=== PATIENT | male | born 1975 | race Caucasian/White ===

== ENCOUNTER 2022-04-06 06:15 | Inpatient (IN) | payer OTHER, MEDICAID, SELFPAY ==
--- NOTE | 2022-04-06 | ECG_ITS ---
Test Reason : COCAINE USE Blood Pressure : / mmHG Vent. Rate : 067 BPM Atrial Rate : 067 BPM P-R Int : 148 ms QRS Dur : 094 ms QT Int : 400 ms P-R-T Axes : 059 -68 018 degrees QTc Int : 422 ms Normal sinus rhythm Left axis deviation Abnormal ECG When compared with ECG of 08-FEB-2018 10:27, No significant change was found Referred By: Priyanka Glover Electronically Signed By:LIVE MCCULLOUGH
--- NOTE | ~2022-04-06 | CT_ITS ---
EXAMINATION: CT CHEST WITHOUT CONTRAST CLINICAL INFORMATION: Shortness of breath. COMPARISON: None. TECHNIQUE: Multidetector volumetric CT imaging of the chest was done. Axial MIP volume rendering provided. Sagittal and coronal reformatted images were obtained. This CT examination was performed using dose optimization techniques as appropriate, variously including the following: *Automated exposure control *Adjustment of mA and/or kV according to patient size (this includes techniques or standardized protocols for targeted exams where dose is matched to indication/reason for exam; i.e. extremities or head) *Use of iterative reconstruction technique DLP: 286 mGy-cm FINDINGS: LUNGS: Very mild bronchial wall thickening. Cylindrical cystic lucency in the posterior right lower lobe (5:325) in continuation with a dilated segmental bronchial branch, suggesting bronchiectasis. No focal consolidation or groundglass disease. Central airways are patent. No suspicious pulmonary nodule or mass. MEDIASTINUM: Normal heart size. No pericardial effusion. No mediastinal lymphadenopathy. Evaluation of the hilar structures is limited in the absence of IV contrast. CORONARY ARTERY CALCIFICATION: None visualized on this study, although evaluation is limited by motion. PLEURA: There is no pleural effusion. No pleural mass or thickening. AXILLA: No lymphadenopathy. UPPER ABDOMEN: No significant abnormality. OSSEOUS STRUCTURES: No acute or aggressive appearing osseous findings. CT/CT chest wo IV con IMPRESSION: 1. Very mild bronchial wall thickening suggesting suggesting delayed small airways disease. 2. Cylindrical bronchiectasis in the right lower lobe. 3. No focal consolidation or groundglass disease. 4. No suspicious pulmonary nodule or mass.
[2022-04-06 06:18] VITALS: BP 136/90; PULSE 103; RESP 18; TEMP 36.4; O2SAT 94; BMI 21.1
[2022-04-06 07:06] LABS: COVID-19 Test Negative (Negative); IDNOW Serial# 6674DD1D
--- NOTE | 2022-04-06 07:25 | PC.NURSE ---
pt is sleeping resp even and unlabored.
--- NOTE | 2022-04-06 08:57 | PC.NURSE ---
pt is being seen by md. pt aware of plan of care.
--- NOTE | 2022-04-06 09:01 | ED.PSYCH ---
HPI - Psych General Chief Complaint: Psychiatric Symptoms Stated Complaint: CRISIS,SI,OUTSIDE FOOR HOURS Time Seen by Provider: 04/06/22 08:29 Source: patient Mode of arrival: EMS Limitations: no limitations History of Present Illness HPI Narrative: 46-year-old male with previous psychiatric history presents with feeling stressed out. He has mild suicidal ideation without a plan. He has been hospitalized approximately 2 months ago according to the patient for psychiatric reasons. Has a history of alcohol abuse. Patient denies homicidal ideation. Patient describes symptoms as moderate to severe in nature. There is no clear relieving or exacerbating features. Patient at this time denies any alcohol or drug abuse. Stressors include homelessness. Related Data Home Medications Medication Instructions Recorded Confirmed No Known Home Meds 04/06/22 04/06/22 Allergies Allergy/AdvReac Type Severity Reaction Status Date / Time No Known Allergies Allergy Unverified 10/30/19 18:36 [No Known Allergies*] Review of Systems Review of Systems: CONSTITUTIONAL: Denies weight loss, fever and chills. HEENT: Denies changes in vision and hearing. RESPIRATORY: Denies SOB and cough. CV: Denies palpitations no CP. GI: Denies abdominal pain, nausea, vomiting and diarrhea. : Denies dysuria and urinary frequency. MSK: Denies myalgia and joint pain. SKIN: Denies rash and pruritus. NEUROLOGICAL: Denies headache and syncope. PSYCHIATRIC: Depression, stress, SI All other ROS are negative unless in HPI PMFSH Social History Social History Advance Directives: No Physical Exam Vital Signs: Vital Signs: Last Vital Signs Temp 98.3 F 04/06/22 14:24 Pulse 92 04/06/22 14:24 Resp 17 04/06/22 14:24 BP 122/80 04/06/22 14:24 Pulse Ox 95 04/06/22 14:24 O2 Del Method 04/06/22 14:24 BMI result Body Mass Index 21.1 GEN: Well developed, no acute distress, alert, unkempt HEENT: Normocephalic, atraumatic, normal external ears, nose appears normal, no oropharyngeal edema or exudates Eyes: Normal to appearance Neck: Supple, no lymphadenopathy Respiratory: Talks in complete sentences, no respiratory distress, clear to auscultation bilaterally Cardiovascular: Regular rate and rhythm, no murmurs rubs or gallops Abdomen: Soft, nontender, nondistended, no guarding, no rebound Back: No CVA tenderness Extremities: No clubbing cyanosis or edema Neurologic: No focal neurologic deficits, cranial nerves 2-12 intact, strength is 5/5 bilaterally, gait normal Skin: No rash Course Course Course Narrative: 46-year-old male with previous psychiatric history, homelessness presents for psychiatric evaluation. Patient reports feeling stressed out with some mild suicidal ideation. Denies homicidal ideation. Denies drugs or alcohol. Patient will have routine laboratory analysis to check for any metabolic abnormalities including intoxication. He will have a crisis evaluation. Reevaluation(s) Reevaluation #1: Patient is medically cleared for psychiatric evaluation. The oncoming emergency physician will assume care at this time. Disposition is pending crisis evaluation. Time: 16:12 Medical Decision Making Medical Decision Making [facility] Narrative: 46-year-old male with history of psychiatric illness presents with SI and depressive symptomatology. His examination is nonfocal and otherwise benign. Patient with crisis evaluation with routine laboratory analysis. Differential Diagnosis Differential Diagnoses: The differential diagnosis associated with the presentation includes (Depression, anxiety, psychosis, schizophrenia, schizoaffective disorder, personality disorder, mood disorder, adjustment disorder, drug abuse, alcohol abuse) Admission/Observation Consideration of admission/observation: Escalation of care including admission/observation considered Consult Healthcare Provider Management of the patient was discussed with: Behavioral Health Provider Lab Data [facility] Lab Attestation statement: I reviewed the patient's lab results. 04/06/22 10:15 04/06/22 10:15 Labs: Lab Results 04/06/22 04/06/22 04/06/22 Range/Units 06:33 10:15 10:15 WBC 8.9 (4.8-10.8) X10*3/uL RBC 5.51 (4.60-5.80) X10*6/uL Hgb 17.1 (14.0-18.0) g/dl Hct 48.9 (42.0-52.0) % MCV 88.7 (80.0-98.0) fL MCH 31.0 (27.0-33.0) pg MCHC 35.0 (31.0-36.0) g/dl RDW 14.6 (11.0-16.0) % Plt Count 224 (160-400) X10*3/uL MPV 10.0 (9.4-12.4) fL Immature Gran % (Auto) 0.2 (0.0-0.4) % Neut % (Auto) 64.4 (45-73) % Lymph % (Auto) 27.3 (20-40) % [place] % (Auto) 7.7 (2-11) % Eos % (Auto) 0.3 (0-4) % Baso % (Auto) 0.1 (0-2) % Lymph # (Auto) 2.4 (1.2-4.9) X10*3/uL [place] # (Auto) 0.7 (0.1-1.2) X10*3/uL Eos # (Auto) 0.0 (0.0-0.4) X10*3/uL Baso # (Auto) 0.0 (0.0-0.2) X10*3/uL Abs Immat Gran (auto) 0.02 (0.00-0.03) X10*3/uL Absolute Neuts (auto) 5.7 (2.0-8.3) x10*3/uL Absolute Nucleated RBC 0.000 (0.0-0.012) X10*3/uL Nucleated RBC % (auto) 0.0 (0.0-0.2) /100WBC Sodium 142 (135-145) mmol/L Potassium 4.3 (3.3-5.1) mmol/L Chloride 104 (96-108) mmol/L Carbon Dioxide 27 (22-29) mmol/L Anion Gap 15 (12-20) BUN 9 (9-16) mg/dL Creatinine 0.77 (0.5-1.4) mg/dL Estim Creat Clear Calc 103.8 Estimated GFR > 60 Random Glucose 77 (60-115) mg/dL Calcium 9.3 (8.4-10.2) mg/dL Total Bilirubin 0.9 (0.0-1.0) mg/dL AST 19 (5-37) U/L ALT 21 (0-40) U/L Alkaline Phosphatase 72 (39-117) U/L Total Protein 6.9 (6.5-8.0) g/dL Albumin 4.2 (3.5-5.0) g/dL Urine Color Urine Appearance Urine pH (5.0-9.0) Ur Specific [place] (1.005-1.025) Urine Protein (Neg-Trace) mg/dL Urine Glucose (UA) (Negative) mg/dL Urine Ketones (Negative) mg/dL Urine Blood (Negative) Urine Nitrite (Negative) Ur Leukocyte Esterase (Negative) Urine Opiates Screen (Not Detect) Urine Fentanyl Screen (Not Detect) Ur Barbiturates Screen (Not Detect) Ur Phencyclidine Scrn (Not Detect) Ur Amphetamines Screen (Not Detect) U Benzodiazepines Scrn (Not Detect) Urine Cocaine Screen (Not Detect) U Marijuana (THC) Screen (Not Detect) Ethyl Alcohol 86 mg/dL COVID-19 ([facility]) Negative (Negative) COVID-19 Clin Com See Note 04/06/22 04/06/22 Range/Units 10:42 10:42 WBC (4.8-10.8) X10*3/uL RBC (4.60-5.80) X10*6/uL Hgb (14.0-18.0) g/dl Hct (42.0-52.0) % MCV (80.0-98.0) fL MCH (27.0-33.0) pg MCHC (31.0-36.0) g/dl RDW (11.0-16.0) % Plt Count (160-400) X10*3/uL MPV (9.4-12.4) fL Immature Gran % (Auto) (0.0-0.4) % Neut % (Auto) (45-73) % Lymph % (Auto) (20-40) % [place] % (Auto) (2-11) % Eos % (Auto) (0-4) % Baso % (Auto) (0-2) % Lymph # (Auto) (1.2-4.9) X10*3/uL [place] # (Auto) (0.1-1.2) X10*3/uL Eos # (Auto) (0.0-0.4) X10*3/uL Baso # (Auto) (0.0-0.2) X10*3/uL Abs Immat Gran (auto) (0.00-0.03) X10*3/uL Absolute Neuts (auto) (2.0-8.3) x10*3/uL Absolute Nucleated RBC (0.0-0.012) X10*3/uL Nucleated RBC % (auto) (0.0-0.2) /100WBC Sodium (135-145) mmol/L Potassium (3.3-5.1) mmol/L Chloride (96-108) mmol/L Carbon Dioxide (22-29) mmol/L Anion Gap (12-20) BUN (9-16) mg/dL Creatinine (0.5-1.4) mg/dL Estim Creat Clear Calc Estimated GFR Random Glucose (60-115) mg/dL Calcium (8.4-10.2) mg/dL Total Bilirubin (0.0-1.0) mg/dL AST (5-37) U/L ALT (0-40) U/L Alkaline Phosphatase (39-117) U/L Total Protein (6.5-8.0) g/dL Albumin (3.5-5.0) g/dL Urine Color Yellow Urine Appearance Clear Urine pH 5.5 (5.0-9.0) Ur Specific [place] 1.010 (1.005-1.025) Urine Protein Negative (Neg-Trace) mg/dL Urine Glucose (UA) Negative (Negative) mg/dL Urine Ketones Trace (Negative) mg/dL Urine Blood Negative (Negative) Urine Nitrite Negative (Negative) Ur Leukocyte Esterase Negative (Negative) Urine Opiates Screen Not Detected (Not Detect) Urine Fentanyl Screen Not Detected (Not Detect) Ur Barbiturates Screen Not Detected (Not Detect) Ur Phencyclidine Scrn Not Detected (Not Detect) Ur Amphetamines Screen Not Detected (Not Detect) U Benzodiazepines Scrn Not Detected (Not Detect) Urine Cocaine Screen POSITIVE H (Not Detect) U Marijuana (THC) Screen Not Detected (Not Detect) Ethyl Alcohol mg/dL COVID-19 ([facility]) (Negative) COVID-19 Clin Com External Record Review No records available Prescription Management I considered prescription management with: Other (Anxiolytics) Social Determinants Patient?s care significantly limited by Social Determinants of Health including: Inadequate housing Discharge Plan Discharge Clinical Impression: Depression, Cocaine use Patient Disposition: Still a Patient Prescriptions: No Action No Known Home Meds Interventions: [place]-Suicide Risk Severity Scale Last Done: 04/06/22 06:36
[2022-04-06 09:03] VITALS: BP 109/73; PULSE 79; RESP 16; TEMP 36.8; O2SAT 93
--- NOTE | 2022-04-06 09:05 | PC.NURSE ---
pt is a/o x 3 no sob/marc noted speaks in full sentences. pt denies any si/hi.
[2022-04-06 10:22] LABS: MANUAL DIFF FLAG NO
[2022-04-06 10:23] LABS: Basophils Percent Auto 0.1 % (0-2); Eosinophils Percent Auto 0.3 % (0-4); Hematocrit 48.9 % (42.0-52.0); Hemoglobin 17.1 g/dl (14.0-18.0); Imm Gran Abs Auto 0.02 X10*3/uL (0.00-0.03); Imm Gran Pct Auto 0.2 % (0.0-0.4); Lymphocytes Absolute Auto 2.4 X10*3/uL (1.2-4.9); Lymphocytes Percent Auto 27.3 % (20-40); Mean Corpuscular Volume 88.7 fL (80.0-98.0); Monocytes Absolute Auto 0.7 X10*3/uL (0.1-1.2); Monocytes Percent Auto 7.7 % (2-11); Neutrophils Absolute Auto 5.7 x10*3/uL (2.0-8.3); Neutrophils Percent Auto 64.4 % (45-73); Platelet Count 224 X10*3/uL (160-400); Red Blood Count 5.51 X10*6/uL (4.60-5.80); Red Cell Distribution Width 14.6 % (11.0-16.0); White Blood Count 8.9 X10*3/uL (4.8-10.8)
[2022-04-06 10:41] LABS: Alanine Aminotransferase 21 U/L (0-40); Albumin Level 4.2 g/dL (3.5-5.0); Alkaline Phosphatase 72 U/L (39-117); Anion Gap 15 (12-20); Aspartate Amino Transferase 19 U/L (5-37); Bilirubin Total 0.9 mg/dL (0.0-1.0); Blood Urea Nitrogen 9 mg/dL (9-16); Calcium 9.3 mg/dL (8.4-10.2); Carbon Dioxide 27 mmol/L (22-29); Chloride 104 mmol/L (96-108); Creatinine Clr Calc Pharmacy 103.8; Estimated Glomerular Filt Rate > 60; Glucose Random 77 mg/dL (60-115); Potassium 4.3 mmol/L (3.3-5.1); Sodium 142 mmol/L (135-145); Total Protein 6.9 g/dL (6.5-8.0)
[2022-04-06 10:59] LABS: Ethanol 86 mg/dL
[2022-04-06 11:06] LABS: Appearance Urine Clear; Color Urine Yellow; Glucose Urine UA Negative (Negative); Leukocyte Esterase Urine Negative (Negative); Nitrite Urine Negative (Negative); PH 5.5 (5.0-9.0); Urine Blood Negative (Negative); Urine Ketones Trace mg/dL (Negative); Urine Protein Negative (Neg-Trace)
[2022-04-06 11:13] LABS: Amphetamine Screen Urine Not Detected (Not Detect); Barbiturates, Urine Not Detected (Not Detect); Benzodiazepines Screen Urine Not Detected (Not Detect); Cannabinoid Screen Urine Not Detected (Not Detect); Cocaine Screen Urine POSITIVE (Not Detect); Fentanyl, urine Not Detected (Not Detect); Opiate Screen Urine Not Detected (Not Detect); Phencyclidine Screen Urine Not Detected (Not Detect)
[2022-04-06 14:24] VITALS: BP 122/80; PULSE 92; RESP 17; TEMP 36.8; O2SAT 95
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
--- NOTE | 2022-04-06 19:28 | PHA.MEDREC ---
Pharmacy Consult ? Medication Reconciliation Pharmacy has completed the medication reconciliation.Pharmacy reviewed med rec done by nurse.
[2022-04-06 21:18] VITALS: BP 142/85; PULSE 94; RESP 18; TEMP 37.1; O2SAT 94
--- NOTE | 2022-04-06 21:47 | PC.NURSE ---
Demetrio was admitted to M3 at 1930 from [facility] [place] [facility] for treatment of psychosis and suicidal ideation.? [place] and brought to ED for evaluation. He was found to be under the influence of alcohol and cocaine and was expressing suicidal ideation. During his ED visit he was paranoid, disorganized and expressed delusional thought content. He has a history of IPLOC for similar presentation in the past. On admission to Demetrio is alert, oriented to person, place, year, month but perhaps not situation. He was calm and pleasant but vague, guarded during admission and unwilling to sign legals. Mood is depressed. Affect is sad and anxious. He denies hallucinations and shows no sign of responding to internal stimuli. Thought process is disorganized. Patient denies current Ideation, plan or intent to harm self or others. Appetite is good, He reports usual weight of 130 and current weight is 150 lbs Sleep is reportedly good. Focus is fair. Substance Issues include daily alcohol use of 4-5 nips of vodka per day and daily cocaine use. CIWA on admission is a 2 scoring for anxiety and disorientation to date. Patient denies medical Issues? and offers no physical complaint. Demetrio was placed on q 15 minute Safety Checks.
[2022-04-07 08:58] VITALS: BP 118/72; PULSE 86; RESP 18; O2SAT 96
[2022-04-07 09:58] LABS: Alanine Aminotransferase 37 U/L (0-40); Albumin Level 4.5 g/dL (3.5-5.0); Alkaline Phosphatase 79 U/L (39-117); Anion Gap 13 (12-20); Aspartate Amino Transferase 28 U/L (5-37); Bilirubin Total 1.9 mg/dL (0.0-1.0); Blood Urea Nitrogen 18 mg/dL (9-16); Calcium 9.9 mg/dL (8.4-10.2); Carbon Dioxide 29 mmol/L (22-29); Chloride 102 mmol/L (96-108); Cholesterol 216 mg/dL; Estimated Glomerular Filt Rate > 60; Glucose Fasting 136 mg/dL (60-99); HDL Cholesterol 78 mg/dL; LDL Cholesterol Calculated 122 mg/dl; Potassium 4.2 mmol/L (3.3-5.1); Sodium 140 mmol/L (135-145); Total Protein 7.3 g/dL (6.5-8.0); Triglycerides 80 mg/dL
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
[2022-04-07 13:25] VITALS: BP 146/103; PULSE 79; RESP 18; TEMP 37.2; O2SAT 90
[2022-04-07 20:20] VITALS: BP 118/79; PULSE 77; RESP 16; TEMP 36.4; O2SAT 94
--- NOTE | 2022-04-08 00:47 | PC.NURSE ---
0000 CIWA not performed. patient is asleep. respirations even. no diaphoresis when assessed by observation. no distress noted.
--- NOTE | 2022-04-08 04:57 | PC.NURSE ---
CIWA-patient was OOB at 0410. allowed for brief assessment in which he denied any w/d s/s. score 0. declined to have VS taken. returned to bed after receiving fluids he had requested.
[2022-04-08 08:00] VITALS: BP 123/78; PULSE 75; RESP 18; TEMP 36.6; O2SAT 96
[2022-04-08 18:00] VITALS: BP 117/81; PULSE 72; RESP 16; TEMP 36.9; O2SAT 95
--- NOTE | 2022-04-08 22:15 | HO.PSYCHPN ---
Subjective Subjective Date of Service: 04/08/22 Reason For Visit: Mood Interim History: asking for discharge and therapy referral. per staff, 3-day up weds. disorganized, paranoid, delusional. isolative, withdrawn. chest CT NEG. not scoring on CIWA. Mental Status Exam Mental Status Exam Narrative: Appearance: thin, wearing hospital gown, in NAD Behavior: cooperative Psychomotor: no agitation or retardation noted Speech: clear, regular rate, spontaneous TP: disorganized with loose association TC: paranoia of [employer] and [employer] going after him Mood: good Affect: congruent, in no distress SI: denies HI: none VH/AH: denies Delusions: paranoid delusions Insight/judgment: poor x 2. Memory/cog: poor attention, alert, oriented x 3. Diagnostics Vital Signs (24Hr): Vital Signs - 24 hr 04/08/22 08:00 04/08/22 18:00 Temperature 97.9 F 98.4 F Pulse Rate 75 72 Respiratory Rate 18 16 Blood Pressure 123/78 117/81 Pulse Oximetry 96 95 Oxygen Delivery Method Room Air Room Air BMI result Body Mass Index 21.1 Labs 04/06/22 10:15 04/07/22 09:23 Labs: Laboratory Results - last 48 hr 04/07/22 09:23 Sodium 140 Potassium 4.2 Chloride 102 Carbon Dioxide 29 Anion Gap 13 BUN 18 H Creatinine 0.94 Estim Creat Clear Calc 85.0 Estimated GFR > 60 Fasting Glucose 136 H Calcium 9.9 D Total Bilirubin 1.9 H AST 28 ALT 37 Alkaline Phosphatase 79 Total Protein 7.3 Albumin 4.5 Triglycerides 80 Cholesterol 216 LDL Cholesterol, Calc 122 HDL Cholesterol 78 Imaging Radiology Impressions: ITS Impressions Chest CT 04/07/22 21:00 IMPRESSION: 1. Very mild bronchial wall thickening suggesting suggesting delayed small airways disease. 2. Cylindrical bronchiectasis in the right lower lobe. 3. No focal consolidation or groundglass disease. 4. No suspicious pulmonary nodule or mass. Medications Medications Current Medications Acetaminophen (Acetaminophen 325 Mg Tablet) 650 mg PO Q6H PRN PRN Reason: Headache/Pain Mild Scale (1-3) Al Hydroxide/Mg Hydroxide (Magnesium Hydrox/Alum Hydrox 30 Ml Oral.Susp) 30 ml PO Q6H PRN PRN Reason: Heartburn/Nausea Hydroxyzine HCl (Hydroxyzine Hcl 25 Mg Tablet) 25 mg PO Q6H PRN PRN Reason: Anxiety Lorazepam (Lorazepam 1 Mg Tablet) 1 mg PO Q4H PRN PRN Reason: ciwa 7-12 Lorazepam (Lorazepam 1 Mg Tablet) 2 mg PO Q4H PRN PRN Reason: ciwa 13-17 Magnesium Hydroxide (Milk Of Magnesia 30 Ml Oral.Susp) 30 ml PO DAILY PRN PRN Reason: Constipation Nicotine Polacrilex (Nicotine Polacrilex 2 Mg Gum) 2 mg BUCCAL Q2H PRN PRN Reason: Nicotine Cravings Olanzapine (Olanzapine Odt 10 Mg Tab.Rapdis) 10 mg TRANSLINGU Q6H PRN PRN Reason: agitation/anxiety/psychosis Trazodone HCl (Trazodone Hcl 50 Mg Tablet) 50 mg PO BEDTIME MRX1 PRN PRN Reason: Insomnia Allergies Allergies Allergy/AdvReac Type Severity Reaction Status Date / Time No Known Allergies Allergy Unverified 10/30/19 18:36 [No Known Allergies*] Assessment & Plan Assessment & Plan (1) Schizophrenia: Status: Acute Code(s): F20.9 - Schizophrenia, unspecified (2) Cocaine use disorder, moderate, dependence: Status: Acute Code(s): F14.20 - Cocaine dependence, uncomplicated (3) Alcohol use disorder, moderate, dependence: Status: Acute Code(s): F10.20 - Alcohol dependence, uncomplicated Plan Mr. Chan is a 46 year-old male with hx of schizophrenia, cocaine and alcohol use disorder [place]. In the ED, pt presented with paranoid delusions of goverment and [employer] following. His utox positive for cocaine and BAL was 86. Pt on ciwa protocol for alcohol withdrawal- currently not scoring higher than 5-7. SBP <150, although some mild elevation of DBP 103. Hr<79. Pt with no signs of delirium, although presented with paranoid delusions. He declines medications for psychosis/delusions. He is guarded about even taking benzodiazepines for alcohol withdrawal should he scores higher than 8 or symptoms worsen. He is noted to have some SOB, with O2sat of 90% on RA, will continue to monitor for worsening of respiratory condition although this NOT considered to be related alcohol withdrawal. Pt mentions that he was told he had lung nodules but had not followed up with referrals. PLAN 1. Admit to M3, CV, 15 minutes 2. ciwa q4h, ativan per ciwa score 3. obtain collateral information 4. Aftercare planning. 04/08: asking for ensure, added to diet order. also requesting therapy referral at discharge, and discharge. informed he will need to wait for attending to return on sunday to discuss discharge planning. calm, cooperative. continue current mgmt. Reason for contiued inpatient stay Substantial Risk for: inability to function and rapid decompensation Time Spent With Patient Time: Total time managing care of this patient today _15___ minutes.
[2022-04-09 08:00] VITALS: BP 120/78; PULSE 82; RESP 18; TEMP 36.6; O2SAT 97
--- NOTE | 2022-04-09 17:00 | HO.PSYCHPN ---
Subjective Subjective Date of Service: 04/09/22 Reason For Visit: Mood Interim History: asking for testing for HIV, Hep C, GC/chlam, syphilis. c/o some blood in his bowel mvmt. encouraged to see PCP and get colonoscopy. per staff, no anx/dep. no withdrawal symptoms. eating better, sleeping well. watching TV. CIWA all zeros. i don't trust your energy to particular nurse, asking for someone else to give him a menu. Mental Status Exam Mental Status Exam Narrative: Appearance: thin, wearing hospital gown, in NAD Behavior: cooperative Psychomotor: no agitation or retardation noted Speech: clear, regular rate, spontaneous TP: disorganized with loose association TC: paranoia of [employer] and [employer] going after him Mood: good Affect: congruent, in no distress SI: denies HI: none VH/AH: denies Delusions: paranoid delusions Insight/judgment: poor x 2. Memory/cog: poor attention, alert, oriented x 3. Diagnostics Vital Signs (24Hr): Vital Signs - 24 hr 04/08/22 18:00 04/09/22 08:00 Temperature 98.4 F 97.9 F Pulse Rate 72 82 Respiratory Rate 16 18 Blood Pressure 117/81 120/78 Pulse Oximetry 95 97 Oxygen Delivery Method Room Air Room Air BMI result Body Mass Index 21.1 Labs 04/06/22 10:15 04/07/22 09:23 Imaging Radiology Impressions: ITS Impressions Chest CT 04/07/22 21:00 IMPRESSION: 1. Very mild bronchial wall thickening suggesting suggesting delayed small airways disease. 2. Cylindrical bronchiectasis in the right lower lobe. 3. No focal consolidation or groundglass disease. 4. No suspicious pulmonary nodule or mass. Medications Medications Current Medications Acetaminophen (Acetaminophen 325 Mg Tablet) 650 mg PO Q6H PRN PRN Reason: Headache/Pain Mild Scale (1-3) Al Hydroxide/Mg Hydroxide (Magnesium Hydrox/Alum Hydrox 30 Ml Oral.Susp) 30 ml PO Q6H PRN PRN Reason: Heartburn/Nausea Hydroxyzine HCl (Hydroxyzine Hcl 25 Mg Tablet) 25 mg PO Q6H PRN PRN Reason: Anxiety Lorazepam (Lorazepam 1 Mg Tablet) 1 mg PO Q4H PRN PRN Reason: ciwa 7-12 Lorazepam (Lorazepam 1 Mg Tablet) 2 mg PO Q4H PRN PRN Reason: ciwa 13-17 Magnesium Hydroxide (Milk Of Magnesia 30 Ml Oral.Susp) 30 ml PO DAILY PRN PRN Reason: Constipation Nicotine Polacrilex (Nicotine Polacrilex 2 Mg Gum) 2 mg BUCCAL Q2H PRN PRN Reason: Nicotine Cravings Olanzapine (Olanzapine Odt 10 Mg Tab.Rapdis) 10 mg TRANSLINGU Q6H PRN PRN Reason: agitation/anxiety/psychosis Trazodone HCl (Trazodone Hcl 50 Mg Tablet) 50 mg PO BEDTIME MRX1 PRN PRN Reason: Insomnia Allergies Allergies Allergy/AdvReac Type Severity Reaction Status Date / Time No Known Allergies Allergy Unverified 10/30/19 18:36 [No Known Allergies*] Assessment & Plan Assessment & Plan (1) Schizophrenia: Status: Acute Code(s): F20.9 - Schizophrenia, unspecified (2) Cocaine use disorder, moderate, dependence: Status: Acute Code(s): F14.20 - Cocaine dependence, uncomplicated (3) Alcohol use disorder, moderate, dependence: Status: Acute Code(s): F10.20 - Alcohol dependence, uncomplicated Plan Mr. Chan is a 46 year-old male with hx of schizophrenia, cocaine and alcohol use disorder [place] In the ED, pt presented with paranoid delusions of goverment and [employer] following. His utox positive for cocaine and BAL was 86. Pt on ciwa protocol for alcohol withdrawal- currently not scoring higher than 5-7. SBP <150, although some mild elevation of DBP 103. Hr<79. Pt with no signs of delirium, although presented with paranoid delusions. He declines medications for psychosis/delusions. He is guarded about even taking benzodiazepines for alcohol withdrawal should he scores higher than 8 or symptoms worsen. He is noted to have some SOB, with O2sat of 90% on RA, will continue to monitor for worsening of respiratory condition although this NOT considered to be related alcohol withdrawal. Pt mentions that he was told he had lung nodules but had not followed up with referrals. PLAN 1. Admit to M3, CV, 15 minutes 2. ciwa q4h, ativan per ciwa score 3. obtain collateral information 4. Aftercare planning. 04/08: asking for ensure, added to diet order. also requesting therapy referral at discharge, and discharge. informed he will need to wait for attending to return on sunday to discuss discharge planning. calm, cooperative. continue current mgmt. 04/09: asking for STD testing. continue current mgmt. Reason for contiued inpatient stay Substantial Risk for: inability to function and rapid decompensation Time Spent With Patient Time: Total time managing care of this patient today ____ minutes.
[2022-04-09 20:30] VITALS: BP 116/82; PULSE 74; RESP 18; TEMP 36.4; O2SAT 95
[2022-04-10 04:13] LABS: Syphilis Screen Nonreactive (Nonreactive)
[2022-04-10 04:14] LABS: ~Hepatitis C Antibody Nonreactive (Nonreactive)
[2022-04-10 04:22] LABS: HIV AB/AG Nonreactive (Nonreactive); HIV Num 1 0.07 S/CO (0.00-0.99)
[2022-04-10 05:15] LABS: CT PCR NOT DETECTED (Not Detect.); NG PCR NOT DETECTED (Not Detect.)
[2022-04-10 09:20] VITALS: BP 122/79; PULSE 67; RESP 16; TEMP 36.4; O2SAT 98
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
[2022-04-10 18:00] VITALS: BP 124/74; PULSE 70; RESP 18; TEMP 36.6; O2SAT 97
== END 2022-04-11 09:55 | disposition home or self-care (01) | DRG 885 ==
LOC: HO.ED 17:42 → HO.PADLT16 19:20
PROVIDERS: Psychiatry & Neurology Psychiatry; Admitting Provider Psychiatry & Neurology Psychiatry; Emergency Provider Emergency Medicine; Visit Provider Social Worker
DX: F20.9 Schizophrenia, unspecified (principal); R45.851 Suicidal ideations; F14.20 Cocaine dependence, uncomplicated; F17.210 Nicotine dependence, cigarettes, uncomplicated; Z71.6 Tobacco abuse counseling; Y90.4 Blood alcohol level of 80-99 mg/100 ml; F10.20 Alcohol dependence, uncomplicated; Z20.822 Contact with and (suspected) exposure to COVID-19; Z62.810 Personal history of physical and sexual abuse in childhood
CPT/HCPCS: 0353U; 36415; 71250; 80053; 80061; 80307; 81003; 82077; 85025; 86780; 86803; 87389; 87635; 93005; 99285

== ENCOUNTER 2022-10-28 00:41 | Emergency (ER) | payer OTHER, MEDICAID, SELFPAY ==
[2022-10-28] VITALS (8 sets, daily range): BP systolic 123–135; BP diastolic 75–96; PULSE 64–98; RESP 10–16; TEMP 36.6–37.1; O2SAT 94–97; BMI 21.1
--- NOTE | 2022-10-28 00:50 | ED.GENADULT ---
HPI - General Adult General Chief complaint: ETOH/Substance Use Stated complaint: nausea vomitting Time Seen by Provider: 10/28/22 00:48 History of Present Illness HPI narrative: 47-year-old male who has a history of schizophrenia, alcohol and cocaine use, who presents for evaluation of possible alcohol withdrawal, nausea and vomiting. Patient states that he has been drinking daily, 1 L of vodka with his last drink at approximately 8:00 a.m. on October 27, 2022. Patient states that he is trying to quit cold turkey. Loss in addition the patient is also attempting to discontinue tobacco use. He denies any other illicit drug abuse. He has used cocaine recently but none today. Patient states that he has been having nausea and vomiting this evening which therefore prompted him to come to the emergency department. He denies any abdominal pain. No urinary symptoms. He denies any suicidal or homicidal ideation. He has not tried any medication for this. Related Data Home Medications Medication Instructions Recorded Confirmed No Known Home Meds 04/06/22 04/06/22 Allergies Allergy/AdvReac Type Severity Reaction Status Date / Time No Known Allergies Allergy Unverified 10/30/19 18:36 [No Known Allergies*] Review of Systems Review of Systems: Constitutional: No Weight loss, No Fever, No Chills, No Night Sweats, No Fatigue, No Malaise Cardiovascular: No Chest Pain, No SOB, No Edema, No Palpitations Respiratory: No Cough, No Sputum, No Dyspnea Gastrointestinal:+ Nausea, + Vomiting, No Diarrhea, No Constipation, No Abdominal pain Genitourinary: No irregular bleeding, No Dysuria, No Hematuria, No Flank Pain Musculoskeletal: No joint pain, No Myalgias, No Joint Swelling Neuro: No Weakness, No Numbness, No Paresthesias, No Loss of Consciousness, No Dizziness, No Headache PMFSH Social History Social History Household Members: None Housing: Homeless Do you presently have visiting nurse or other home services: No Alcohol intake: current Alcohol intake frequency: 3 or more drinks per day Alcohol type: hard liquor Patient Tobacco Use Status: Current someday Tobacco user Smoked in Last 30 Days: Yes Use of substances other than those prescribed or required for medical reasons: Yes Substance Use Type: Crack/Cocaine service: No Sexual orientation: Straight/Heterosexual Physical Exam ED Vital Signs: Vital Signs - 24 hr 10/28/22 01:13 10/28/22 01:42 Temperature 98.0 F 98.6 F Pulse Rate 93 91 Respiratory Rate 14 16 Blood Pressure 123/81 123/81 Pulse Oximetry 94 95 Oxygen Delivery Method Room Air BMI result Body Mass Index 21.1 Const General: cooperative, no acute distress, alert and awake Orientation/consciousness: patient oriented x3 Resp Effort & Inspection: normal respiratory effort Auscultation: clear to auscultation bilaterally Cardio Rate: regular rate Rhythm: regular rhythm GI Other: Abdomen soft and nontender throughout. No guarding or rebound. Neuro General: patient oriented x3 Cranial nerves: Yes CN's II-XII intact bilaterally (No asterixis) Course Course Course Narrative: 1:30 p.m., October 28, 2022 patient resting comfortably at this time. CIWA is a 3. Zofran for mild nausea. Reassessment pending labs pending. Reevaluation(s) Reevaluation #1: The alcohol level is 41. CBC, chemistries, within normal limits. Urine tox is pending. Care team evaluation also pending. Time: 01:47 Medications Administered Generic Name Dose Route Start Last Admin Trade Name Freq PRN Reason Stop Dose Admin Sodium Chloride 1,000 mls @ 999 mls/hr 10/28/22 01:00 10/28/22 01:42 Ns IV 10/28/22 02:00 999 mls/hr .Q1H1M ANDREW Administration Discontinued Medications Generic Name Dose Route Start Last Admin Trade Name Freq PRN Reason Stop Dose Admin Ondansetron HCl 4 mg 10/28/22 00:54 10/28/22 01:42 Ondansetron Hcl 4 Mg/2 Ml Vial IVPUSH 10/28/22 00:55 4 mg ONCE ONE Administration Medical Decision Making Medical Decision Making MDM Narrative: 47-year-old male with a history of schizophrenia and alcohol use, presenting for alcohol withdrawal associated nausea vomiting. Patient is resting comfortably at this time, however is endorsing intermittent episode of nausea but no vomiting. Denies any abdominal pain. Check labs, IV fluids and antiemetics. Differential Diagnosis Differential Diagnoses: The differential diagnosis associated with the presentation includes Wernicke's encephalopathy Alcohol withdrawal Alcohol dependence Alcohol intoxication Dehydration Metabolic abnormality Lab Data 10/28/22 01:19 10/28/22 01:19 Labs: Lab Results 10/28/22 Range/Units 01:19 WBC 6.6 (4.8-10.8) X10*3/uL RBC 5.31 (4.60-5.80) X10*6/uL Hgb 16.4 (14.0-18.0) g/dl Hct 47.3 (42.0-52.0) % MCV 89.1 (80.0-98.0) fL MCH 30.9 (27.0-33.0) pg MCHC 34.7 (31.0-36.0) g/dl RDW 13.8 (11.0-16.0) % Plt Count 217 (160-400) X10*3/uL MPV 9.7 (9.4-12.4) fL Immature Gran % (Auto) 0.5 H (0.0-0.4) % Neut % (Auto) 56.0 (45-73) % Lymph % (Auto) 32.7 (20-40) % Hawkins % (Auto) 8.8 (2-11) % Eos % (Auto) 1.5 (0-4) % Baso % (Auto) 0.5 (0-2) % Lymph # (Auto) 2.2 (1.2-4.9) X10*3/uL Hawkins # (Auto) 0.6 (0.1-1.2) X10*3/uL Eos # (Auto) 0.1 (0.0-0.4) X10*3/uL Baso # (Auto) 0.0 (0.0-0.2) X10*3/uL Abs Immat Gran (auto) 0.03 (0.00-0.03) X10*3/uL Absolute Neuts (auto) 3.7 (2.0-8.3) x10*3/uL Absolute Nucleated RBC 0.000 (0.0-0.012) X10*3/uL Nucleated RBC % (auto) 0.0 (0.0-0.2) /100WBC Sodium 141 (135-145) mmol/L Potassium 3.4 (3.3-5.1) mmol/L Chloride 106 (96-108) mmol/L Carbon Dioxide 24 (22-29) mmol/L Anion Gap 14 (12-20) BUN 8 L (9-16) mg/dL Creatinine 0.73 (0.5-1.4) mg/dL Estim Creat Clear Calc TNP Estimated GFR > 60 Random Glucose 131 H (60-115) mg/dL Calcium 9.0 D (8.4-10.2) mg/dL Magnesium 1.9 (1.6-2.6) mg/dL Total Bilirubin 0.4 (0.0-1.0) mg/dL AST 26 (5-37) U/L ALT 31 (0-40) U/L Alkaline Phosphatase 73 (39-117) U/L Total Protein 6.7 (6.5-8.0) g/dL Albumin 4.1 (3.5-5.0) g/dL Lipase 13 (8-78) U/L Ethyl Alcohol 41 mg/dL Independent Interpretation I performed an independent interpretation of an: EKG Interpretation: Sinus EKG at 82 beats per minute without any acute ischemic changes. Social Determinants Patient?s care significantly limited by Social Determinants of Health including: Inadequate housing and Alcoholism and drug addiction in family Discharge Plan Discharge Clinical Impression: Alcohol use disorder, moderate, dependence Patient Disposition: Still a Patient Prescriptions: No Action No Known Home Meds
--- NOTE | 2022-10-28 00:54 | ECG_ITS ---
Test Reason : NAUSEA Blood Pressure : / mmHG Vent. Rate : 082 BPM Atrial Rate : 082 BPM P-R Int : 158 ms QRS Dur : 108 ms QT Int : 364 ms P-R-T Axes : 064 -63 020 degrees QTc Int : 425 ms Normal sinus rhythm Left axis deviation Pulmonary disease pattern Abnormal ECG When compared with ECG of 06-APR-2022 17:34, No significant change was found Referred By: Gustavo Thompson Electronically Signed By:LUZ ARELLANO
[2022-10-28 01:23] LABS: MANUAL DIFF FLAG NO
[2022-10-28 01:25] LABS: Basophils Percent Auto 0.5 % (0-2); Eosinophils Absolute Auto 0.1 X10*3/uL (0.0-0.4); Eosinophils Percent Auto 1.5 % (0-4); Hematocrit 47.3 % (42.0-52.0); Hemoglobin 16.4 g/dl (14.0-18.0); Imm Gran Abs Auto 0.03 X10*3/uL (0.00-0.03); Imm Gran Pct Auto 0.5 % (0.0-0.4); Lymphocytes Absolute Auto 2.2 X10*3/uL (1.2-4.9); Lymphocytes Percent Auto 32.7 % (20-40); Mean Corpuscular HGB Conc 34.7 g/dl (31.0-36.0); Mean Corpuscular Hemoglobin 30.9 pg (27.0-33.0); Mean Corpuscular Volume 89.1 fL (80.0-98.0); Mean Platelet Volume 9.7 fL (9.4-12.4); Monocytes Absolute Auto 0.6 X10*3/uL (0.1-1.2); Monocytes Percent Auto 8.8 % (2-11); Neutrophils Absolute Auto 3.7 x10*3/uL (2.0-8.3); Platelet Count 217 X10*3/uL (160-400); Red Blood Count 5.31 X10*6/uL (4.60-5.80); Red Cell Distribution Width 13.8 % (11.0-16.0); White Blood Count 6.6 X10*3/uL (4.8-10.8)
[2022-10-28 01:39] LABS: Ethanol 41 mg/dL
[2022-10-28 01:41] LABS: Alanine Aminotransferase 31 U/L (0-40); Albumin Level 4.1 g/dL (3.5-5.0); Alkaline Phosphatase 73 U/L (39-117); Anion Gap 14 (12-20); Aspartate Amino Transferase 26 U/L (5-37); Bilirubin Total 0.4 mg/dL (0.0-1.0); Blood Urea Nitrogen 8 mg/dL (9-16); Carbon Dioxide 24 mmol/L (22-29); Chloride 106 mmol/L (96-108); Estimated Glomerular Filt Rate > 60; Glucose Random 131 mg/dL (60-115); Lipase 13 U/L (8-78); Magnesium 1.9 mg/dL (1.6-2.6); Potassium 3.4 mmol/L (3.3-5.1); Sodium 141 mmol/L (135-145); Total Protein 6.7 g/dL (6.5-8.0)
[2022-10-28] MEDS: ondansetron HCL 4 MG/2 ML VIAL IVPUSH (01:42)
[2022-10-28] MEDS: 0.9 % Sodium Chloride 1,000 ML 999 ML IV (01:42)
--- NOTE | 2022-10-28 02:15 | PC.NURSE ---
per MD Crouch, cancel folic acid
[2022-10-28 03:33] LABS: Amphetamine Screen Urine Not Detected (Not Detect); Barbiturates, Urine Not Detected (Not Detect); Benzodiazepines Screen Urine Not Detected (Not Detect); Cannabinoid Screen Urine Not Detected (Not Detect); Cocaine Screen Urine Not Detected (Not Detect); Fentanyl, urine Not Detected (Not Detect); Opiate Screen Urine Not Detected (Not Detect); Phencyclidine Screen Urine Not Detected (Not Detect)
--- NOTE | 2022-10-28 06:47 | PC.NURSE ---
Pt BIBA, requesting ETOH detox, pt is AOx3, is resting quietly, speaking in fulling sentences. Meds given per MAR, VSS, pt aware of plan.
--- NOTE | 2022-10-28 10:12 | MHC.RECOVRN ---
Addendum entered by Madelnie Rowe RN 10/28/22 16:57: Detox bedsearch exhausted at this time, no open male detox beds. Reviewed findings with ED Provider and ED RN. This newspaper writer reviewed plan with patient, reviewed patient to follow up with [facility] to continue detox bedsearch, pt given detox list and education provided on calling process, reviewed medications for ETOH use, reminded pt can present as a walk in to [facility] for medications for ETOH, harm reduction reviewed, risks of ETOH withdrawal reviewed. Pt verbalized understanding. Pt given bus passes to get home to [place] and then to present to [facility] tomorrow 10/29. Pt denied ETOH withdrawal s/s. Addendum entered by Madeline Rowe RN 10/28/22 13:43: No beds [facility], under review at [facility]. Original Note: This newspaper writer met with patient, patient presented to ED seeking detox. Pt reports drinking 1 liter Vodka daily for 12 months. Pt reports occasional OPAL use. Pt reports no hx of seizures, DT's. Pt reports no hx of treatment in the past, no hx of medications for ETOH use. Reviewed detox bedsearch process w/ patient, patient verbalized understanding. ATS bedsearch commenced, will keep pt updated on status.
== END 2022-10-28 17:18 | disposition home or self-care (01) ==
PROVIDERS: Physician Assistant; Emergency Provider Emergency Medicine Emergency Medical Services
DX: F10.20 Alcohol dependence, uncomplicated (principal); Y90.2 Blood alcohol level of 40-59 mg/100 ml; R11.2 Nausea with vomiting, unspecified; F20.9 Schizophrenia, unspecified
CPT/HCPCS: 36415; 80053; 80307; 83690; 83735; 85025; 93005; 96361; 96374; 99284; 99285; J2405